=== PATIENT | female | born 1995 | race Caucasian/White ===

== ENCOUNTER 2023-04-08 11:58 | Emergency (ER) | payer SELFPAY ==
--- NOTE | 2023-04-08 12:51 | ED.DENTAL ---
HPI - Dental/Oral General Chief complaint: Dental/Oral Stated complaint: Tooth infection Time Seen by Provider: 04/08/23 12:52 Source: patient Mode of arrival: ambulatory Limitations: no limitations History of Present Illness HPI Narrative: 27 yo female with no known medical history here with complaints of right upper dental pain x weeks, now with increasing pain, swelling. No fevers, chills. Has been seen by dentist and needs extraction but they are in [place] and she has been putting this off till May. Related Data Previous Rx's Medication Instructions Recorded amoxicillin 875 mg-potassium 1 tab PO BID #14 tabs 04/08/23 clavulanate 125 mg tablet Allergies Allergy/AdvReac Type Severity Reaction Status Date / Time honey Allergy Nausea Verified 04/08/23 12:52 Review of Systems Review of Systems: Yes all other systems are reviewed and are negative Constitutional: Constitutional: Reports no additional constitutional complaints, Denies body ache(s), Denies chills, Denies fever(s), Denies headache(s) and Denies weakness Eyes: Eyes: Reports no additional eye complaints and Denies change in vision ENT: Reports system reviewed and no additional complaints, except as documented, Reports dental pain, Denies dizziness, Denies headache(s), Denies nasal congestion, Denies nasal discharge and Denies neck pain Cardiovascular: Cardiovascular: Reports no additional cardiovascular complaints, Denies chest pain, Denies leg edema and Denies dyspnea Respiratory: Respiratory: Reports no additional respiratory complaints, Denies cough and Denies dyspnea Gastrointestinal: Gastrointestinal: Reports no additional gastrointestinal complaints, Denies abdominal pain, Denies diarrhea, Denies nausea and Denies vomiting Genitourinary: Genitourinary: Reports no additional female genitourinary complaints and Denies urinary incontinence Musculoskeletal: Musculoskeletal: Reports no additional musculoskeletal complaints, Denies back pain, Denies arthralgias, Denies joint swelling, Denies neck pain, Denies numbness and Denies tingling Integumentary/Breasts: Skin/Breast: Reports system reviewed and no additional complaints, except as docu and Denies rash Neurologic: Reports system reviewed and no additional complaints, except as documented, Denies Abnormal speech present, Denies dizziness, Denies headache(s), Denies numbness, Denies tingling and Denies weakness [facility] Past Medical History Attestation statement: The following information was validated with the patient. Source: old records reviewed and nursing notes reviewed Onset Date is defined in the Problem List Problems that require an onset date and time if occurred within 24 hrs of arrival to the ED Aortic Dissection and Rupture; Neurologic impairment; Cardiopulmonary Arrest; Endotracheal Intubation; Insertion or Replacement of Mechanical Circulatory Assist Device Social History Social History Advance Directives: No Advance Directives Information Provided: Yes Advance Directives on File: No Physical Exam Vital Signs: Vital Signs: Last Vital Signs Temp 97.6 F 04/08/23 12:53 Pulse 83 04/08/23 12:53 Resp 18 04/08/23 12:53 BP 135/88 04/08/23 12:53 Pulse Ox 100 04/08/23 12:53 O2 Del Method Room Air 04/08/23 12:53 BMI result Body Mass Index 35.4 Const: General: cooperative, healthy appearing, comfortable and no acute distress Orientation/consciousness: patient oriented x3 Limitations: no limitations HEENT: Other: no trismus Head: Yes normal to inspection Ears: hearing grossly normal bilaterally and TM's normal bilaterally General nose exam: Normal external nose present Face and sinus: Yes normal facial exam Mouth: Normal oral and palatal mucosa present Teeth and gingiva: caries Teeth image: 1. Broken molar-local erythema and swelling with no abscess Throat: Yes posterior oropharynx normal, Yes tonsils normal and Yes uvula midline Eyes: General: appearance normal, both eyes and all related structures Pupils: Equal, round and reactive pupils present Neck: Neck: Yes normal visual inspection, Yes full ROM, Yes no lymphadenopathy and Yes no meningeal signs Chest: Chest palpation & inspection: normal inspection of the chest Resp: Effort & Inspection: normal respiratory effort Auscultation: clear to auscultation bilaterally Cardio: Rate: regular rate Rhythm: regular rhythm Peripheral pulses: Peripheral pulses 2+ throughout GI: Inspection: Yes normal to inspection Palpation (GI): Soft to palpation and nontender Auscultation: normal bowel sounds Back/Spine/Pelvis: Thoracic/Lumbar Spine: thoracic and lumbar spine normal to inspection Skin: General skin exam: no rashes or lesions noted Neuro: General: patient oriented x3, no meningeal signs, no focal motor deficits and normal sensation to monofilament Cranial nerves: Yes Equal, round and reactive pupils present Cognition (Neuro): normal cognition Speech: No Abnormal speech present Gait exam (Neuro): Normal gait present Motor exam (neuro): 5/5 motor strength present throughout Extrem: General: Yes normal to inspection and Yes no pedal edema Course Course Course Narrative: This is a rapid medical exam. Deferred additional HPI, RO, PE to primary provider. Medical Decision Making Medical Decision Making [facility] Narrative: 27 yo female with no known medical history here with complaints of right upper dental pain x weeks, now with increasing pain, swelling. No fevers, chills. Has been seen by dentist and needs extraction but they are in [place] and she has been putting this off till May. Broken molar seen right upper area. There is local erythema and swelling. There is no palpable abscess. There is no trismus on exam. There is some local facial swelling. Patient tolerating p.o. with no difficulty. Vitals are stable. Will initiate oral antibiotics and recommend follow-up with dental outpatient Differential Diagnosis Differential Diagnoses: The differential diagnosis associated with the presentation includes Dental infection Low concern for dental abscess, cellulitis, osteomyelitis, Loco's angina Admission/Observation Consideration of admission/observation: Escalation of care including admission/observation considered low concern for dental abscess, cellulitis, osteomyelitis, Loco's angina requiring labs or advanced imaging or admission for IV antibiotic Tests considered The following testing was considered but not selected: low concern for dental abscess, cellulitis, osteomyelitis, Loco's angina requiring labs or advanced imaging Prescription Management I considered prescription management with: Antibiotic Discharge Plan Discharge Clinical Impression: Pain, dental Patient Disposition: Home, Self-Care Instructions: Toothache (ED) Additional Instructions: Motrin Tylenol for pain Take the antibiotic as prescribed Saltwater gargles, topical Orajel Soft foods Prescriptions: New amoxicillin-pot clavulanate 875-125 mg tablet 1 tab PO BID Qty: 14 0RF Referrals: Physician,Unknown J [Primary Care Provider] - 1 week Interventions: ED Discharge Assessment Last Done: 04/08/23 13:14 Discharge Date/Time: 04/08/23 13:17
[2023-04-08 12:53] VITALS: BP 135/88; PULSE 83; RESP 18; TEMP 36.4; O2SAT 100; BMI 35.4
== END 2023-04-08 13:17 | disposition home or self-care (01) ==
LOC: HO.ED 13:05
PROVIDERS: Emergency Provider Student in an Organized Health Care Education/Training Program
DX: K08.89 Other specified disorders of teeth and supporting structures (principal)
CPT/HCPCS: 99282; 99283